=== PATIENT | male | born 1970 | race Caucasian/White ===

== ENCOUNTER 2021-03-15 07:39 | Day surgery (SDC) | payer OTHER, SELFPAY ==
[2021-03-09 10:21] VITALS: BMI 32.5
--- NOTE | 2021-03-14 08:45 | P.CONAN_ITS ---
Documented by User: Ebony Wright NP 03/14/21 08:46 HPI - Anesthesia Eval Consult details Narrative: 50yo Upper Endoscopy PMFSH Past Medical History Medical History Asthma COVID-19 vaccine series completed HTN (hypertension) Psoriatic arthritis Sleep apnea Surgical History Surgical History H/O colonoscopy History of mandibular surgery Hx of arthroscopic knee surgery Social History Social History Are you a primary personal care home administrator to a significant other at home: No Do you presently have visiting nurse or other home services: No Patient Tobacco Use Status: Never used Tobacco Use of substances other than those prescribed or required for medical reasons: No Have you been hit, kicked, punched, or otherwise hurt by someone within the past year? If so, by whom?: No Are you DNR?: No Advance Directives Information Provided: Yes (informational brochure mailed) Advance Directives on File: No Recently lost weight without trying: No Eating poorly because of decreased appetite: No Nutrition Risks: No Nutritional Risk Poor oral hygiene: No Meds Allergies Allergy/AdvReac Type Severity Reaction Status Date / Time grass pollen Allergy Intermediate Itchy Eyes Verified 03/09/21 09:53 tree and shrub pollen Allergy Intermediate Itchy Eyes Verified 03/09/21 09:53 Home Medications Medication Instructions Recorded Confirmed Last Taken Type albuterol sulfate 90 mcg/actuation 2 puff INHALATION Q4-6H PRN 03/09/21 03/09/21 Unknown History aerosol inhaler (Ventolin HFA) diclofenac sodium 1 % topical gel 2 g TOPICAL QID 03/09/21 03/09/21 Unknown History diclofenac sodium 75 mg 75 mg PO BID PRN 03/09/21 03/09/21 Unknown History tablet,delayed release famotidine 20 mg tablet 20 mg PO BEDTIME PRN 03/09/21 03/09/21 Unknown History fluticasone furoate 200 1 inh INHALATION DAILY 03/09/21 03/09/21 Unknown History mcg-vilanterol 25 mcg/dose inhalation powder (Breo Ellipta) fluticasone propionate 50 1 spray INTRANASAL BEDTIME 03/09/21 03/09/21 Unknown History mcg/actuation nasal spray,suspension lisinopril 5 mg tablet 5 mg PO DAILY 03/09/21 03/09/21 Unknown History loratadine 10 mg tablet 10 mg PO DAILY PRN 03/09/21 03/09/21 Unknown History lorazepam 0.5 mg tablet 0.5 mg PO BEDTIME PRN 03/09/21 03/09/21 Unknown History omeprazole 20 mg capsule,delayed 20 mg PO DAILY 03/09/21 03/09/21 Unknown History release valacyclovir 500 mg tablet 500 mg PO DAILY 03/09/21 03/09/21 Unknown History Exam Exam Date and Time: March 14, 2021 0845 Height,Weight and Vital Signs: Height 5 ft 10 in Weight 102.965 kg Assessment and Plan Assessment Anesthesia Assessment: Chart Reviewed Documented by User: Jenna Bacon MD 03/15/21 08:42 [facility] Past Medical History Medical History Asthma COVID-19 vaccine series completed HTN (hypertension) Psoriatic arthritis Sleep apnea Surgical History Surgical History H/O colonoscopy History of mandibular surgery Hx of arthroscopic knee surgery History of Problems with Anesthesia: No Social History Social History Are you a primary personal care home administrator to a significant other at home: No Do you presently have visiting nurse or other home services: No Patient Tobacco Use Status: Never used Tobacco Use of substances other than those prescribed or required for medical reasons: No Have you been hit, kicked, punched, or otherwise hurt by someone within the past year? If so, by whom?: No Are you DNR?: No Advance Directives Information Provided: Yes (informational brochure mailed) Advance Directives on File: No Recently lost weight without trying: No Eating poorly because of decreased appetite: No Nutrition Risks: No Nutritional Risk Poor oral hygiene: No Meds Allergies Allergy/AdvReac Type Severity Reaction Status Date / Time grass pollen Allergy Intermediate Itchy Eyes Verified 03/09/21 09:53 tree and shrub pollen Allergy Intermediate Itchy Eyes Verified 03/09/21 09:53 Home Medications Medication Instructions Recorded Confirmed Last Taken Type albuterol sulfate 90 mcg/actuation 2 puff INHALATION Q4-6H PRN 03/09/21 03/09/21 Unknown History aerosol inhaler (Ventolin HFA) diclofenac sodium 1 % topical gel 2 g TOPICAL QID 03/09/21 03/09/21 Unknown History diclofenac sodium 75 mg 75 mg PO BID PRN 03/09/21 03/09/21 Unknown History tablet,delayed release famotidine 20 mg tablet 20 mg PO BEDTIME PRN 03/09/21 03/09/21 Unknown History fluticasone furoate 200 1 inh INHALATION DAILY 03/09/21 03/09/21 Unknown History mcg-vilanterol 25 mcg/dose inhalation powder (Breo Ellipta) fluticasone propionate 50 1 spray INTRANASAL BEDTIME 03/09/21 03/09/21 Unknown History mcg/actuation nasal spray,suspension lisinopril 5 mg tablet 5 mg PO DAILY 03/09/21 03/09/21 Unknown History loratadine 10 mg tablet 10 mg PO DAILY PRN 03/09/21 03/09/21 Unknown History lorazepam 0.5 mg tablet 0.5 mg PO BEDTIME PRN 03/09/21 03/09/21 Unknown History omeprazole 20 mg capsule,delayed 20 mg PO DAILY 03/09/21 03/09/21 Unknown History release valacyclovir 500 mg tablet 500 mg PO DAILY 03/09/21 03/09/21 Unknown History Exam Airway Mallampati Class: III TM Dist: >3cm Neck ROM: Full Loose/Missing/Broken Teeth: No Heart: RRR Lungs: CTA Assessment and Plan Assessment Anesthesia Assessment: Anesthesia Plan Discussed Final Anesthetic Review History of Problems with Anesthesia: No NPO: Yes ASA Class: II Final Preanesthetic Review: Meds/Allgs Chart Reviewed, Consent Obtained/Reviewed and Anes Risks/Benef Reviewed Patient Risk: Low Procedure Risk: Intermediate Anesthetic Plan Anesthetic Plan: MAC: Disposition: Standard PACU
[2021-03-15 07:46] VITALS: BP 142/88; PULSE 75; RESP 18; TEMP 36.6; O2SAT 97
[2021-03-15] MEDS: Lactated Ringers 1,000 ML 100 ML IVCONT (08:03)
--- NOTE | 2021-03-15 08:53 | MHC.SHP ---
Pre-Procedural Eval Section A Date of Service: 03/15/21 The patient is an INPATIENT: No Changes since office visit: Yes Cold of Flu in the past 2 weeks, Yes New Medical Problems, Yes Changes in Medication and Yes Patient answered all questions The History & Physical has been completed within 30 days and I have reviewed it.: Yes Section B Chief Complaint: GERD Allergies: Allergies Allergy/AdvReac Type Severity Reaction Status Date / Time grass pollen Allergy Intermediate Itchy Eyes Verified 03/09/21 09:53 tree and shrub pollen Allergy Intermediate Itchy Eyes Verified 03/09/21 09:53 Plan I have reviewed the history and physical and performed a pertinent physical examination on my patient. No changes have occurred unless specified.
[2021-03-15 09:15] VITALS: BP 115/71; PULSE 77; RESP 16; TEMP 36.4; O2SAT 94
--- NOTE | 2021-03-15 09:23 | P.BOP_ITS ---
Brief Operative Note Date of Service: 03/15/21 Pre-op diagnosis: gerd Procedure: upper endoscopy Surgeon: Lon Serna Anesthesia: MAC Was an Preschool Adviser used for this Procedure?: No Estimated blood loss (mL): 0 Pathology: other (antrAL NODULE, ANTRAL, EGJ BIOPSIES) Condition: stable Disposition: PACU
[2021-03-15 09:32] VITALS: BP 119/77; PULSE 85; RESP 18; O2SAT 97
[2021-03-15 09:45] VITALS: BP 132/88; PULSE 82; RESP 18; O2SAT 97
--- NOTE | 2021-03-15 09:52 | OP_ITS ---
SURGEON: Lon Serna MD INDICATIONS: Gastroesophageal reflux disease. PREOPERATIVE DIAGNOSIS: POSTOPERATIVE DIAGNOSIS: PROCEDURE PERFORMED: Upper endoscopy with biopsy. ESTIMATED BLOOD LOSS: COMPLICATIONS: ANESTHESIA: ASSISTANTS: SPECIMENS: MEDICATIONS: Monitored anesthesia care. DESCRIPTION OF PROCEDURE: History and physical performed. The risks and benefits of the procedure were explained to the patient. Informed consent was obtained. The patient was placed in the left lateral decubitus position. The Olympus video gastroscope was introduced into the esophagus, stomach, and duodenum. Examination was performed and the scope was removed. He tolerated the procedure well and was taken to recovery area in stable condition. FINDINGS: Esophagus: The esophagus was normal. There was no esophagitis. Biopsies were obtained from the EG junction. Stomach: The stomach showed some mild nodularity in the antrum with one 10 mm area suspicious for possible underlying pancreatic rest. This was located on the anterior wall approximately 3 cm from the pylorus. Biopsies were obtained from the nodule and from the antrum to rule out H pylori. There was some mild nodularity in the remaining part of the antrum. Duodenum: The bulb and second portion were normal. IMPRESSION: Gastroesophageal reflux disease. RECOMMENDATION: Follow up the biopsy results. MD NEVA Morton/HUMERA / [id number]
[2021-03-15 09:55] VITALS: TEMP 36.4
== END 2021-03-15 10:29 | disposition home or self-care (01) ==
PROVIDERS: PCP Internal Medicine; Visit Provider Internal Medicine Gastroenterology
PROC: 0DJ08ZZ Inspection of Upper Intestinal Tract, Via Natural or Artificial Opening Endoscopic (ICD-10-PCS; CPT 43235; principal; 2021-03-15 08:50)
DX: K21.9 Gastro-esophageal reflux disease without esophagitis (principal); K20.80 Other esophagitis without bleeding; I10 Essential (primary) hypertension; J45.909 Unspecified asthma, uncomplicated; G47.33 Obstructive sleep apnea (adult) (pediatric); B00.9 Herpesviral infection, unspecified; Z79.899 Other long term (current) drug therapy; Z79.51 Long term (current) use of inhaled steroids
CPT/HCPCS: 43239; 88305; 88342; J3010